=== PATIENT | male | born 1955 | race Caucasian/White ===

== ENCOUNTER 2021-01-06 07:50 | Day surgery (SDC) | payer MEDICARE, BC ==
[~2021-01-06] VITALS: Ht 177.8 cm; Wt 92.0 kg
[~2021-01-06 07:50] MED LIST: ACYCLOVIR400 MG PO; FINACEA50 G1; TUMS200 MG; VITAMIN D310 MC4 PO
--- NOTE | 2021-01-06 10:54 | NUR ---
01/06/21 1054 Marium Osorio 4080 PT ARRIVED IN PACU SLEEPY WITH NO C/O'S. ABD SOFT. 1000 RESTING AND PASSING FLATUS. 1015 SITTING UP IN BED VISITING WITH STAFF. 1030 DC INSTRUCTIONS GIVEN. ALL QUESTIONS ANSWERED.
--- NOTE | 2021-01-07 08:20 | OR ---
[facility] [address], [place] [address] Signed DATE OF OPERATION: 01/06/2021 SURGEON: Loreto Guerra MD PREOPERATIVE DIAGNOSES: 1. Change in bowel habits with loose/diarrhea like stool. 2. Sister with colon polyps, age 58. POSTOPERATIVE DIAGNOSES: 1. A 12 mm pedunculated polyp at 13 cm (left anterior rectum, tattoo). 2. 4 mm polypoid lesion at 5 cm. 3. 4 mm sessile polyp at 5 cm. 4. Minimal to moderate internal hemorrhoids. PROCEDURE: 1. Colonoscopy with snare polypectomy, hot biopsy and injection of tattoo. 2. Rigid proctoscopy. ESTIMATED BLOOD LOSS: None. INDICATIONS: Arya is a 65-year-old gentleman who came in 2019. He at that time had a change in bowel habits with increased frequency of stools, that colonoscopy was unremarkable. Just last year his sister developed colon polyps and had been removed at age 58. He has been retired for 10 years. However, he has been concerned about what he feels is another change in bowel habits with loose stool, not diarrhea at times, sometimes spraying all over the toilet. He said he cut back milk and that really helped. He also cut out the chocolate chip cookies and that helped even more. He brought this up to his primary care provider. He had been asked to see me for a colonoscopy. I met with Arya in the office and I gave him a booklet on colonoscopy. He understands the nature of the test along with the risks including, but not limited to gas bloating, crampy abdominal pain, bleeding, perforation requiring surgery, and missed diagnosis. He also understands the need for IV conscious sedation. He had expressed understanding and wished to proceed. PROCEDURE NOTE: Arya was taken into endoscopy suite and placed in the left lateral decubitus position. He told me today that he thought the diarrhea was getting quite a bit better. He was given a total of 7 mg of Versed and 150 mcg of fentanyl to cover the case. The digital Electronically Signed By: LORETO GUERRA MD 01/07/21 0820 PATIENT NAME: ARYA CARLSON OPERATIVE REPORT DATE OF : 55 REPORT #: [id number] PHYSICIAN: LORETO GUERRA MD PCP: YADI SALMERON PA-C REPORT IS CONFIDENTIAL AND NOT TO BE RELEASED WITHOUT AUTHORIZATION [facility] [address], [place] [address] Signed rectal exam was performed and this was unremarkable. The adult colonoscope was introduced and advanced under direct visualization. We needed some abdominal compression in order to advance the scope down the right colon directly into the cecum itself. His prep was quite excellent. We could easily see the appendiceal orifice and the ileocecal valve. We took pictures throughout for photodocumentation. The scope had been slowly withdrawn. He had no findings in the colon itself. We found a 12 mm pedunculated polyp at 13 cm in the rectum. We divided that with the snare and suctioned it on the OR scope and brought it out for pathologic review. We re-examined the base of that polyp and found to be quite satisfactory. We injected a tattoo then right at the base of the stalk. Later, we inserted the rigid proctoscope and found that to be on the left ever so slightly anterior in the rectum. We also found three tiny white speculated lesions scattered in the rectum. We removed one completely with the cold biopsy forceps for pathologic review back at 5 cm. It really does not have the appearance of C difficile colitis and then opposite that was a more traditional flat appearing sessile polyp at 5 cm which we removed with hot biopsy forceps. Upon retroflexion of scope and we could see that he has minimal to moderate internal hemorrhoids. After this, the gas was suctioned out and colonoscope removed. Arya tolerated the procedure quite well. RECOMMENDATIONS: I will see Arya back in the office in 7 to 14 days to review his results. Loreto Guerra MD [facility]/MODL /[id number] cc: EITAN Balbuena MD Copies: YADI SALMERON PA-C, ANDREW L MD ~ Electronically Signed By: LORETO GUERRA MD 01/07/21 0820 PATIENT NAME: ARYA CARLSON OPERATIVE REPORT DATE OF : 55 REPORT #: [id number] PHYSICIAN: LORETO GUERRA MD PCP: YADI SALMERON PA-C REPORT IS CONFIDENTIAL AND NOT TO BE RELEASED WITHOUT AUTHORIZATION
--- NOTE | 2021-01-07 11:23 | PATH ---
[facility] [address] [place], [place] [address] Signed SPECIMEN(S): A RECTAL POLYP 5 CM SPECIMEN(S): B RECTAL POLYP 5 CM SPECIMEN(S): C RECTAL POLYP 13 CM SPECIMEN SOURCE: A. RECTAL POLYP 5 CM B. RECTAL POLYP 5 CM C. RECTAL POLYP 13 CM CLINICAL HISTORY: Colonoscopy. History of polyps, rectal bleeding, diarrhea. MICROSCOPIC DESCRIPTION: Histologic sections of all submitted blocks are examined by light microscopy. These findings, together with the gross examination, support the pathologic diagnosis. FINAL PATHOLOGIC DIAGNOSIS: A. Rectum, polyp at 5 cm, polypectomy: - Fragments of hyperplastic polyp. - Negative for dysplasia or malignancy. B. Rectum, polyp at 5 cm, polypectomy: - Hyperplastic polyp. - Negative for dysplasia or malignancy. C. Rectum, polyp at 13 cm, polypectomy: - Mucosal prolapse polyp. - Negative for dysplasia or malignancy. NAL:cml:C2NR GROSS DESCRIPTION: Three specimens are received in three containers labeled with "LB." A. The specimen, labeled "LB," and designated on the requisition "rectum polypectomy, 5 cm," is received in formalin and consists of two fragments of pink-olivares tissue (0.4 x 0.3 x 0.3 cm in aggregate). The specimen is submitted entirely in cassette (A1). B. The specimen, labeled "LB," and designated on the requisition "rectum polypectomy at 5 cm," is received in formalin and consists of one fragments of pink-olivares tissue (0.3 x 0.2 x 0.2 cm in aggregate). The specimen is submitted entirely in cassette (B1). C. The specimen, labeled "LB," and designated on the requisition "rectum polypectomy at 13 cm," is received in formalin and consists of one red-brown, bosselated polyp (1.3 x 1.2 x 1.2 cm). The PATIENT NAME: ANTOLIN CARLSON PATHOLOGY DATE OF : 55 REPORT #: [id number] PHYSICIAN: DIMITRIS PATHOLOGY PCP: YADI SALMERON PA-C REPORT IS CONFIDENTIAL AND NOT TO BE RELEASED WITHOUT AUTHORIZATION [facility] [address] [place], [place] [address] Signed resection margin is inked blue and the specimen is quadrisected and submitted entirely in cassettes (C1-C2). AC (under the direct supervision of a pathologist) The Gross Description was prepared using a voice recognition system. The report was reviewed for accuracy; however, sound-alike word errors, addition and/or deletions may occur. If there is any question about this report, please contact Client Services. PERFORMING LABORATORY: The technical component was performed by [facility] ([facility]), [address] [place] [id number] ([employer] Application Developer: Yeni Barney MD; CLIA# [id number]). Professional interpretation was performed by [facility], [address] [address] (CLIA# [id number]). Diagnostician: Nataly Bravo MD Pathologist Electronically Signed 01/07/2021 Copies: ~ PATIENT NAME: ANTOLIN CARLSON PATHOLOGY DATE OF : 55 REPORT #: [id number] PHYSICIAN: DIMITRIS PATHOLOGY PCP: YADI SALMERON PA-C REPORT IS CONFIDENTIAL AND NOT TO BE RELEASED WITHOUT AUTHORIZATION
== END 2021-01-06 10:40 | disposition home or self-care (01) ==
LOC: OPS 07:50 → DS 07:50 → OPS 09:00 → DS 09:45 → OPS 09:45
PROVIDERS: ATTEND Colon & Rectal Surgery
PROC: 0DBP8ZX Excision of Rectum, Via Natural or Artificial Opening Endoscopic, Diagnostic (ICD-10-PCS; 2021-01-06)
PROC: 0DBP8ZX Excision of Rectum, Via Natural or Artificial Opening Endoscopic, Diagnostic (ICD-10-PCS; 2021-01-06)
PROC: 0DBP8ZX Excision of Rectum, Via Natural or Artificial Opening Endoscopic, Diagnostic (ICD-10-PCS; principal; 2021-01-06 09:00)
DX: K62.1 Rectal polyp (principal); K64.8 Other hemorrhoids; E78.5 Hyperlipidemia, unspecified; E55.9 Vitamin D deficiency, unspecified; Z87.891 Personal history of nicotine dependence; Z83.71 Family history of colonic polyps
CPT/HCPCS: 99153; G0500; J2250; J3010; J7121